=== PATIENT | male | born 1960 | race Caucasian/White ===

== ENCOUNTER 2017-09-25 08:50 | Inpatient (IN) | payer MEDICARE, MEDICAID ==
[~2017-09-25] VITALS: Ht 175.3 cm; Wt 135.0 kg
[~2017-09-25 08:50] MED LIST: ALLO100T PO; ALPR0.5T PO; ATEN100T OR; BUPR100T71 OR; BUPR1TAB78 PO; DONE5TAB11 PO; FENO1TAB42 PO; LISI2.5T47 PO; QUET50TA PO; RANI150C11 OR; TRAZ50TA2 OR; ZIPR40CA8 OR
[2017-09-25 09:59] LABS: Eosinophils # (auto) 0 uL; Hemoglobin 18.2 g/dL (13.5-17.5); Mean Corpuscular Volume 87.4 fL (80.0-100.0); Nucleated Red Blood Cells % 0.1 %
[2017-09-25 10:00] LABS: Basophils # (auto) 0.1 uL; Basophils % (auto) 0.4 % (0.0-2.0); Hematocrit 55.7 % (41.0-53.0); Lymphocytes % (auto) 10.4 % (10.0-50.0); Mean Corpuscular Hemoglobin 28.6 pg (28.0-32.0); Mean Corpuscular Hgb Conc. 32.8 g/dL (32.0-36.0); Monocytes # (auto) 1.7 uL; Monocytes % (auto) 8.8 % (0.0-12.0); Neutrophils # (auto) 15.5 uL; Neutrophils % (auto) 80.4 % (37.0-80.0); Platelet Count (auto) 426 10^3/uL (140-450); Red Blood Cells 6.37 10^6/uL (4.5-5.90); White Blood Cell 19.3 10^3/uL (4.4-10.8)
[2017-09-25] MEDS ORDERED: ACETAMINOPHEN 650 MG RECT SUPP PR ONE (10:00)
[2017-09-25 10:05] LABS: Lactic Acid w/Reflex 2.8 mmol/L (0.4-2.0)
[2017-09-25] MEDS ORDERED: SODIUM CHLORIDE 0.9% 1,000 ML IV ONE ×2 (10:27)
[2017-09-25] MEDS ORDERED: PIPERACILLIN-TAZOB 3.375GM 100 ML IV ONE ×2 (10:30→11:00)
[2017-09-25] MEDS ORDERED: VANCOMYCIN 1GM/250ML 250 ML IV ONE ×2 (10:30→11:00)
[2017-09-25 10:31] LABS: Alanine Aminotransferase 35 U/L (16-61); Alkaline Phosphatase 57 U/L (45-117); Anion Gap 12 (5-15); Aspartate Aminotransferase 40 U/L (15-37); BUN/Creatinine Ratio 21.7; Blood Urea Nitrogen 31 mg/dL (7-18); Calcium 9.2 mg/dL (8.5-10.1); Carbon Dioxide 20 mmol/L (21-32); Chloride 111 mmol/L (98-107); GFR African American 66 mL/min; GFR Non-African American 54 mL/min; Glucose 164 mg/dL (74-106); Potassium 4.2 mmol/L (3.5-5.1); Sodium 143 mmol/L (136-145)
[2017-09-25 10:32] LABS: Albumin 4.4 g/dL (3.4-5.0); Bilirubin, Total 0.6 mg/dL (0.2-1.0); Magnesium 2.9 mg/dL (1.6-2.6); Total Protein 8.9 g/dL (6.4-8.2)
[2017-09-25 10:44] LABS: Urine WBC None Seen /hpf (0 - 3)
[2017-09-25] MEDS ORDERED: VANCOMYCIN PER PHARMACY 0 MG IV SCH (11:00)
[2017-09-25] MEDS ORDERED: ACETAMINOPHEN 500 MG TAB PO PRN (11:00)
[2017-09-25] MEDS ORDERED: DEXTROSE (50%) 50ML SYRG IV PRN (11:00)
[2017-09-25] MEDS ORDERED: NITROGLYCERIN 0.4 MG SL TAB SL PRN (11:00)
[2017-09-25] MEDS ORDERED: TEMAZEPAM 15 MG CAP PO PRN (11:00)
[2017-09-25] MEDS ORDERED: LACTULOSE 20Gm/30ML SOLN PO PRN (11:00)
[2017-09-25] MEDS ORDERED: LORazepam 0.5 MG TAB PO PRN (11:00)
[2017-09-25] MEDS ORDERED: ALBUTEROL SULF 2.5 MG/0.5ML(0.5%) NEB SOLN NEB PRN (11:00)
[2017-09-25] MEDS ORDERED: MORPHINE SULFATE 8mg/ml INJ SDV IV PRN ×2 (11:00)
[2017-09-25] MEDS ORDERED: HYDROcodone-ACET 5/325MG TAB PO PRN (11:00)
[2017-09-25] MEDS ORDERED: PROMETHAZINE HCL 25 MG/ML 1ML IV PRN (11:00)
[2017-09-25] MEDS ORDERED: ENOXAPARIN SOD 40 MG/0.4 ML SYRINGE SC SCH (11:12)
[2017-09-25] MEDS ORDERED: ALLOPURINOL 100 MG TAB PO ONE (11:15)
[2017-09-25] MEDS ORDERED: PANTOPRAZOLE 40 MG TAB PO ONE (11:15)
[2017-09-25] MEDS ORDERED: DONEPEZIL HYDROCHLORIDE 5 MG TAB PO ONE (11:15)
[2017-09-25 11:17] LABS: Amphetamine Screen, Urine NEGATIVE (NEGATIVE); Barbiturate Scree,Urine NEGATIVE (NEGATIVE); Benzodiazephine Screen, Urine POSITIVE (NEGATIVE); Cannabinoid Screen, Urine NEGATIVE (NEGATIVE); Cocaine Screen, Urine NEGATIVE (NEGATIVE); Opiate Scree,Urine NEGATIVE (NEGATIVE); Phencyclidine Screen, Urine NEGATIVE (NEGATIVE)
[2017-09-25] MEDS ORDERED: LISINOPRIL 5 MG TAB PO ONE (11:30)
[2017-09-25 11:38] LABS: Urine Bacteria NONE SEEN /hpf (None Seen); Urine Blood TRACE /uL (Negative); Urine Mucus FEW (None Seen); Urine Specific Gravity 1.042 (1.001-1.035)
[2017-09-25] MEDS: SODIUM CHLORIDE 0.9% 1,000 ML IV SCH ×2 (11:45→19:08)
[2017-09-25] MEDS: ALBUTEROL SULF 2.5 MG/0.5ML(0.5%) NEB SOLN NEB SCH ×2 (12:00→19:13)
[2017-09-25 12:19] LABS: INR 1.06 (0.9-1.15); Partial Thromboplastin Time 28.7 sec (22.64-33.71); Prothrombin Time 11.6 sec (9.37-12.3)
[2017-09-25] MEDS: ACCU-CHEK COMFORT CURVE STRIP VI SCH ×2 (12:28→18:21)
[2017-09-25] MEDS ORDERED: LORazepam 2MG/ML-1ML VIAL IV PRN (13:00)
[2017-09-25] MEDS ORDERED: IODIXANOL 320MG/ML 100ML BTL IV ONE (13:38)
[2017-09-25] MEDS ORDERED: ENOXAPARIN SOD 60 MG/0.6 ML SYRINGE SC ONE (14:45)
[2017-09-25] MEDS: METOPROLOL TARTRATE 1MG/1ML-5ML VIAL IV SCH ×3 (15:16→22:47)
[2017-09-25 15:41] LABS: Folate (Folic Acid) 21.95 ng/mL (5.38-24)
[2017-09-25 15:54] VITALS: BP 145/75
[2017-09-25] MEDS: QUEtiapine FUMARATE 25 MG TAB PO SCH (18:00)
[2017-09-25] MEDS: PIPERACILLIN-TAZOB 3.375GM 100 ML IV SCH (18:25)
[2017-09-25] MEDS ORDERED: traZODone HCL 50 MG TAB PO SCH (22:00)
[2017-09-25] MEDS: ENOXAPARIN SOD 100 MG/1 ML SYRINGE SC SCH (22:55)
[2017-09-25] MEDS: ALLOPURINOL 100 MG TAB PO SCH (22:55)
[2017-09-25] MEDS: ZIPRASIDONE HYDROCHLORIDE 40 MG OR SCH (23:08)
[2017-09-25] MEDS: VANCOMYCIN 750 MG in SODIUM CHL 0.9% 250 ML IV SCH (23:08)
[2017-09-26] MEDS ORDERED: LORazepam 2MG/ML-1ML VIAL IM ONE (00:15)
[2017-09-26] MEDS ORDERED: HALOPERIDOL LACTATE 5 MG/ML INJ VIAL IM ONE (00:15)
[2017-09-26] MEDS ORDERED: diphenhdrAMINE HCL 50 MG/1 ML VL IM ONE (00:15)
[2017-09-26] MEDS: METOPROLOL TARTRATE 1MG/1ML-5ML VIAL IV SCH ×6 (02:00→22:00)
[2017-09-26] MEDS: PIPERACILLIN-TAZOB 3.375GM 100 ML IV SCH ×4 (02:05→18:41)
[2017-09-26] MEDS: ACCU-CHEK COMFORT CURVE STRIP VI SCH ×4 (02:34→18:41)
[2017-09-26] MEDS: SODIUM CHLORIDE 0.9% 1,000 ML IV SCH ×2 (03:21→11:35)
[2017-09-26 04:40] VITALS: BP 155/82
[2017-09-26] MEDS: ALBUTEROL SULF 2.5 MG/0.5ML(0.5%) NEB SOLN NEB SCH ×5 (06:05→23:49)
[2017-09-26 06:11] LABS: Basophils # (auto) 0.1 uL; Basophils % (auto) 0.6 % (0.0-2.0); Eosinophils # (auto) 0 uL; Hematocrit 44.4 % (41.0-53.0); Hemoglobin 14.5 g/dL (13.5-17.5); Lymphocytes # (auto) 2.3 uL; Lymphocytes % (auto) 15.9 % (10.0-50.0); Mean Corpuscular Hemoglobin 28.8 pg (28.0-32.0); Mean Corpuscular Hgb Conc. 32.6 g/dL (32.0-36.0); Mean Corpuscular Volume 88.1 fL (80.0-100.0); Monocytes # (auto) 1.5 uL; Monocytes % (auto) 10.1 % (0.0-12.0); Neutrophils # (auto) 10.6 uL; Neutrophils % (auto) 73.4 % (37.0-80.0); Nucleated Red Blood Cells % 0.1 %; Platelet Count (auto) 303 10^3/uL (140-450); Red Blood Cells 5.04 10^6/uL (4.5-5.90); Red Cell Distribution Width 13.8 % (11.8-14.3); White Blood Cell 14.5 10^3/uL (4.4-10.8)
[2017-09-26 06:36] LABS: Albumin 3.5 g/dL (3.4-5.0); BUN/Creatinine Ratio 22.3; Bilirubin, Total 0.5 mg/dL (0.2-1.0); Calcium 8.1 mg/dL (8.5-10.1); Potassium 3.8 mmol/L (3.5-5.1); Total Protein 7.1 g/dL (6.4-8.2)
[2017-09-26 07:30] VITALS: BP 119/73
[2017-09-26] MEDS: DONEPEZIL HYDROCHLORIDE 5 MG TAB PO SCH (09:26)
[2017-09-26] MEDS: PANTOPRAZOLE 40 MG TAB PO SCH (09:26)
[2017-09-26] MEDS: ENOXAPARIN SOD 100 MG/1 ML SYRINGE SC SCH ×2 (09:27→22:17)
[2017-09-26] MEDS: ALLOPURINOL 100 MG TAB PO SCH ×2 (09:27→22:17)
[2017-09-26] MEDS: LISINOPRIL 5 MG TAB PO SCH (09:27)
[2017-09-26] MEDS: BUPROPION HCL 300 MG PO SCH (10:00)
[2017-09-26] MEDS: ZIPRASIDONE HYDROCHLORIDE 40 MG OR SCH ×2 (10:00→22:00)
[2017-09-26] MEDS: Fenofibrate 160 MG PO SCH (10:00)
[2017-09-26] MEDS: VANCOMYCIN 750 MG in SODIUM CHL 0.9% 250 ML IV SCH (10:34)
[2017-09-26 11:47] VITALS: BP 127/79
[2017-09-26] MEDS: AZITHROMYCIN 500MG/ 250ML 250 ML IV SCH (12:34)
[2017-09-26 15:29] VITALS: BP 136/79
[2017-09-26] MEDS ORDERED: ASPI-498 OR (16:19)
[2017-09-26] MEDS ORDERED: OMEG100078 PO (16:20)
[2017-09-26] MEDS ORDERED: ASPI-498 PO (16:21)
[2017-09-26] MEDS ORDERED: SERT-160 PO (16:27)
[2017-09-26] MEDS ORDERED: CHOL1TAB42 PO (16:36)
[2017-09-26] MEDS ORDERED: METF-370 PO (16:39)
[2017-09-26] MEDS: QUEtiapine FUMARATE 25 MG TAB PO SCH (18:41)
[2017-09-26 20:00] VITALS: BP 101/52
[2017-09-26] MEDS: VANCOMYCIN 1,250 MG in SODIUM CHL 0.9% 250 ML IV SCH (22:30)
[2017-09-27] MEDS: ACCU-CHEK COMFORT CURVE STRIP VI SCH ×4 (00:20→18:35)
[2017-09-27] MEDS: PIPERACILLIN-TAZOB 3.375GM 100 ML IV SCH ×4 (00:56→18:34)
[2017-09-27] MEDS: METOPROLOL TARTRATE 1MG/1ML-5ML VIAL IV SCH ×6 (02:00→22:00)
[2017-09-27 05:00] VITALS: BP 105/68
[2017-09-27] MEDS: VANCOMYCIN 1,250 MG in SODIUM CHL 0.9% 250 ML IV SCH ×2 (05:23→14:10)
[2017-09-27 06:14] LABS: Basophils # (auto) 0.1 uL; Basophils % (auto) 1.1 % (0.0-2.0); Eosinophils # (auto) 0.2 uL; Eosinophils % (auto) 2.1 % (0.0-7.0); Hematocrit 40.6 % (41.0-53.0); Hemoglobin 13.4 g/dL (13.5-17.5); Lymphocytes # (auto) 2.3 uL; Lymphocytes % (auto) 25.5 % (10.0-50.0); Mean Corpuscular Hgb Conc. 33.1 g/dL (32.0-36.0); Mean Corpuscular Volume 87.7 fL (80.0-100.0); Monocytes # (auto) 0.8 uL; Monocytes % (auto) 8.4 % (0.0-12.0); Neutrophils # (auto) 5.7 uL; Neutrophils % (auto) 62.9 % (37.0-80.0); Nucleated Red Blood Cells % 0.1 %; Platelet Count (auto) 262 10^3/uL (140-450); Red Blood Cells 4.63 10^6/uL (4.5-5.90); Red Cell Distribution Width 13.9 % (11.8-14.3)
[2017-09-27 06:27] LABS: Albumin 3.1 g/dL (3.4-5.0); BUN/Creatinine Ratio 14.3; Bilirubin, Total 0.4 mg/dL (0.2-1.0); Calcium 8.1 mg/dL (8.5-10.1); Potassium 3.6 mmol/L (3.5-5.1); Total Protein 6.5 g/dL (6.4-8.2)
[2017-09-27] MEDS: ALBUTEROL SULF 2.5 MG/0.5ML(0.5%) NEB SOLN NEB SCH ×4 (06:41→22:36)
[2017-09-27 08:00] VITALS: BP 105/68
[2017-09-27 08:07] VITALS: BP 121/73
[2017-09-27] MEDS: AZITHROMYCIN 500MG/ 250ML 250 ML IV SCH (08:46)
[2017-09-27] MEDS: PANTOPRAZOLE 40 MG TAB PO SCH (08:46)
[2017-09-27] MEDS: ENOXAPARIN SOD 100 MG/1 ML SYRINGE SC SCH ×2 (08:46→22:21)
[2017-09-27] MEDS: ALLOPURINOL 100 MG TAB PO SCH ×2 (08:47→22:21)
[2017-09-27] MEDS: LISINOPRIL 5 MG TAB PO SCH (08:47)
[2017-09-27] MEDS: DONEPEZIL HYDROCHLORIDE 5 MG TAB PO SCH (08:47)
[2017-09-27] MEDS: ZIPRASIDONE HYDROCHLORIDE 40 MG OR SCH ×2 (10:00→22:00)
[2017-09-27] MEDS: Fenofibrate 160 MG PO SCH (10:00)
[2017-09-27] MEDS: BUPROPION HCL 300 MG PO SCH (10:00)
[2017-09-27] MEDS: SODIUM CHLORIDE 0.9% 1,000 ML IV SCH ×2 (12:30)
[2017-09-27 17:09] VITALS: BP 116/69
[2017-09-27] MEDS: QUEtiapine FUMARATE 25 MG TAB PO SCH (18:34)
[2017-09-27 22:00] VITALS: BP 100/62
[2017-09-28] VITALS (7 sets, daily range): BP systolic 112–143; BP diastolic 63–84
[2017-09-28] MEDS: ACCU-CHEK COMFORT CURVE STRIP VI SCH ×4 (00:13→17:18)
[2017-09-28] MEDS: METOPROLOL TARTRATE 1MG/1ML-5ML VIAL IV SCH ×6 (02:00→21:59)
[2017-09-28] MEDS: cefTRIAXone 1GM/10ml IVPUSH 10 ML IV SCH (02:25)
[2017-09-28] MEDS: ALBUTEROL SULF 2.5 MG/0.5ML(0.5%) NEB SOLN NEB SCH ×3 (05:58→18:49)
[2017-09-28 06:11] LABS: Basophils # (auto) 0.1 uL; Basophils % (auto) 1.3 % (0.0-2.0); Eosinophils # (auto) 0.2 uL; Eosinophils % (auto) 3.1 % (0.0-7.0); Hematocrit 39.7 % (41.0-53.0); Hemoglobin 13.2 g/dL (13.5-17.5); Lymphocytes # (auto) 1.8 uL; Lymphocytes % (auto) 23.7 % (10.0-50.0); Mean Corpuscular Hemoglobin 29.2 pg (28.0-32.0); Mean Corpuscular Hgb Conc. 33.3 g/dL (32.0-36.0); Mean Corpuscular Volume 87.7 fL (80.0-100.0); Monocytes # (auto) 0.7 uL; Monocytes % (auto) 8.8 % (0.0-12.0); Neutrophils # (auto) 4.8 uL; Neutrophils % (auto) 63.1 % (37.0-80.0); Platelet Count (auto) 251 10^3/uL (140-450); Red Blood Cells 4.52 10^6/uL (4.5-5.90); Red Cell Distribution Width 13.6 % (11.8-14.3); White Blood Cell 7.6 10^3/uL (4.4-10.8)
[2017-09-28] MEDS: SODIUM CHLORIDE 0.9% 1,000 ML IV SCH ×2 (06:17→13:30)
[2017-09-28 06:25] LABS: Albumin 2.9 g/dL (3.4-5.0); Calcium 8.1 mg/dL (8.5-10.1); Potassium 3.5 mmol/L (3.5-5.1)
[2017-09-28 06:27] LABS: BUN/Creatinine Ratio 13.8
[2017-09-28 06:30] LABS: Bilirubin, Total 0.4 mg/dL (0.2-1.0); Total Protein 6.3 g/dL (6.4-8.2)
[2017-09-28] MEDS: ALLOPURINOL 100 MG TAB PO SCH ×2 (09:21→21:56)
[2017-09-28] MEDS: LISINOPRIL 5 MG TAB PO SCH (09:21)
[2017-09-28] MEDS: DONEPEZIL HYDROCHLORIDE 5 MG TAB PO SCH (09:21)
[2017-09-28] MEDS: AZITHROMYCIN 250 MG TAB PO SCH (09:21)
[2017-09-28] MEDS: PANTOPRAZOLE 40 MG TAB PO SCH (09:22)
[2017-09-28] MEDS: ENOXAPARIN SOD 100 MG/1 ML SYRINGE SC SCH (09:22)
[2017-09-28] MEDS: BUPROPION HCL 300 MG PO SCH (10:00)
[2017-09-28] MEDS: Fenofibrate 160 MG PO SCH (10:00)
[2017-09-28] MEDS: ZIPRASIDONE HYDROCHLORIDE 40 MG OR SCH ×2 (10:00→22:00)
[2017-09-28] MEDS: QUEtiapine FUMARATE 25 MG TAB PO SCH (17:17)
[2017-09-28] MEDS: APIXABAN 5 MG TAB PO SCH (21:56)
[2017-09-29] MEDS: ALBUTEROL SULF 2.5 MG/0.5ML(0.5%) NEB SOLN NEB SCH ×3 (00:06→11:38)
[2017-09-29] MEDS: METOPROLOL TARTRATE 1MG/1ML-5ML VIAL IV SCH ×2 (02:00→06:00)
[2017-09-29] MEDS: cefTRIAXone 1GM/10ml IVPUSH 10 ML IV SCH (03:20)
[2017-09-29] MEDS: SODIUM CHLORIDE 0.9% 1,000 ML IV SCH (03:20)
[2017-09-29 06:04] VITALS: BP 119/78
[2017-09-29] MEDS: ACCU-CHEK COMFORT CURVE STRIP VI SCH ×2 (06:28)
[2017-09-29 07:21] LABS: Albumin 3.2 g/dL (3.4-5.0); BUN/Creatinine Ratio 17.1; Bilirubin, Total 0.3 mg/dL (0.2-1.0); Calcium 8.6 mg/dL (8.5-10.1); Potassium 3.8 mmol/L (3.5-5.1); Total Protein 6.7 g/dL (6.4-8.2)
[2017-09-29 07:26] LABS: Basophils # (auto) 0.1 uL; Basophils % (auto) 0.7 % (0.0-2.0); Eosinophils # (auto) 0.2 uL; Eosinophils % (auto) 2.7 % (0.0-7.0); Hematocrit 39.9 % (41.0-53.0); Hemoglobin 13.3 g/dL (13.5-17.5); Lymphocytes # (auto) 1.6 uL; Lymphocytes % (auto) 22.6 % (10.0-50.0); Mean Corpuscular Hemoglobin 29.1 pg (28.0-32.0); Mean Corpuscular Hgb Conc. 33.4 g/dL (32.0-36.0); Mean Corpuscular Volume 87.2 fL (80.0-100.0); Monocytes # (auto) 0.6 uL; Monocytes % (auto) 8.5 % (0.0-12.0); Neutrophils # (auto) 4.7 uL; Neutrophils % (auto) 65.5 % (37.0-80.0); Nucleated Red Blood Cells % 0.1 %; Platelet Count (auto) 261 10^3/uL (140-450); Red Blood Cells 4.58 10^6/uL (4.5-5.90); White Blood Cell 7.2 10^3/uL (4.4-10.8)
[2017-09-29 08:46] VITALS: BP 116/74
[2017-09-29] MEDS: AZITHROMYCIN 250 MG TAB PO SCH (09:37)
[2017-09-29] MEDS: LISINOPRIL 5 MG TAB PO SCH (09:38)
[2017-09-29] MEDS: DONEPEZIL HYDROCHLORIDE 5 MG TAB PO SCH (09:38)
[2017-09-29] MEDS: PANTOPRAZOLE 40 MG TAB PO SCH (09:38)
[2017-09-29] MEDS: APIXABAN 5 MG TAB PO SCH (09:38)
[2017-09-29] MEDS: ALLOPURINOL 100 MG TAB PO SCH (09:38)
[2017-09-29] MEDS ORDERED: BUPROPION HCL 150 MG PO SCH (10:00)
[2017-09-29 11:36] VITALS: BP 114/74
[2017-09-29 12:39] VITALS: BP 116/74
== END 2017-09-29 16:45 | disposition home or self-care (01) | DRG 871 ==
LOC: ER 08:50 → EDBD 08:50 → EDUNIT# 08:50 → OVERFLOW 08:51 → DOU IN ICU 09-26 03:28 → TELE-EAST 09-26 23:48
PROVIDERS: ADMIT Internal Medicine; ATTEND Family Medicine
DX: A41.9 Sepsis, unspecified organism (principal); G93.41 Metabolic encephalopathy; I26.99 Other pulmonary embolism without acute cor pulmonale; J18.9 Pneumonia, unspecified organism; F03.90 Unspecified dementia, unspecified severity, without behavioral disturbance, psychotic disturbance, mood disturbance, and anxiety; F41.9 Anxiety disorder, unspecified; F20.9 Schizophrenia, unspecified; F32.9 Major depressive disorder, single episode, unspecified; I10 Essential (primary) hypertension; Z80.7 Family history of other malignant neoplasms of lymphoid, hematopoietic and related tissues; Z82.49 Family history of ischemic heart disease and other diseases of the circulatory system; Z85.72 Personal history of non-Hodgkin lymphomas; Z90.49 Acquired absence of other specified parts of digestive tract
CPT/HCPCS: 36415; 51702; 70450; 71045; 71275; 80053; 80061; 80202; 80307; 80320; 81001; 82550; 82607; 82746; 82962; 83036; 83605; 83735; 84443; 84484; 85025; 85379; 85610; 85652; 85730; 87040; 87081; 87086; 93005; 94640; 94761; 96365; G0378; J2543; J7060; Q9967

== ENCOUNTER 2017-10-19 17:15 | Inpatient (IN) | payer MEDICARE, MEDICAID ==
[~2017-10-19] VITALS: Ht 182.9 cm; Wt 129.1 kg
[~2017-10-19 17:15] MED LIST changes: +ASPI-498 PO; +CHOL1TAB42 PO; +METF-370 PO; +OMEG100078 PO; +SERT-160 PO
[2017-10-19 19:19] LABS: Basophils # (auto) 0.1 uL; Eosinophils # (auto) 0 uL; Hemoglobin 17.5 g/dL (13.5-17.5)
[2017-10-19 19:21] LABS: Basophils % (auto) 0.3 % (0.0-2.0); Lymphocytes # (auto) 1.8 uL; Lymphocytes % (auto) 8.5 % (10.0-50.0); Mean Corpuscular Hemoglobin 29.2 pg (28.0-32.0); Mean Corpuscular Hgb Conc. 33.6 g/dL (32.0-36.0); Mean Corpuscular Volume 86.9 fL (80.0-100.0); Monocytes # (auto) 1.9 uL; Monocytes % (auto) 8.6 % (0.0-12.0); Neutrophils % (auto) 82.6 % (37.0-80.0); Nucleated Red Blood Cells % 0.1 %; Platelet Count (auto) 426 10^3/uL (140-450); Red Blood Cells 5.98 10^6/uL (4.5-5.90); Red Cell Distribution Width 13.9 % (11.8-14.3); White Blood Cell 21.8 10^3/uL (4.4-10.8)
[2017-10-19 19:38] LABS: Lactic Acid w/Reflex 2.2 mmol/L (0.4-2.0)
[2017-10-19 19:39] LABS: Albumin 4.6 g/dL (3.4-5.0); BUN/Creatinine Ratio 12.2; Bilirubin, Total 0.5 mg/dL (0.2-1.0); Potassium 4.5 mmol/L (3.5-5.1); Total Protein 9.1 g/dL (6.4-8.2)
[2017-10-19] MEDS ORDERED: SODIUM CHLORIDE 0.9% 1,000 ML IVB ONE (19:42)
[2017-10-19] MEDS ORDERED: cefTRIAXone 1GM/10ml IVPUSH 10 ML IV ONE (19:45)
[2017-10-19] MEDS ORDERED: SODIUM CHLORIDE 0.9% 1,000 ML IV ONE (19:45)
[2017-10-19 20:06] LABS: INR 1.01 (0.9-1.15); Prothrombin Time 10.8 sec (9.27-12.13)
[2017-10-19 20:18] LABS: Magnesium 2.7 mg/dL (1.6-2.6)
[2017-10-19 21:07] LABS: Urine Bacteria NONE SEEN /hpf (None Seen); Urine Blood Negative /uL (Negative); Urine Hyaline Cast FEW /lpf (0 - 2); Urine Mucus FEW (None Seen); Urine Specific Gravity 1.028 (1.001-1.035); Urine WBC 4 /hpf (0 - 3)
[2017-10-19] MEDS ORDERED: HYDROcodone-ACET 5/325MG TAB PO PRN (22:45)
[2017-10-19] MEDS ORDERED: ONDANSETRON HCL 4 MG/2 ML VIAL IV PRN (22:45)
[2017-10-19] MEDS ORDERED: VANCOMYCIN PER PHARMACY 0 MG IV SCH (22:45)
[2017-10-20] MEDS ORDERED: VANCOMYCIN 1GM/250ML 250 ML IV ONE
[2017-10-20] MEDS: PIPERACILLIN-TAZOB 3.375GM 100 ML IV SCH ×5 (01:25→23:55)
[2017-10-20 01:32] LABS: Alcohol, Urine < 3.0 mg/dL (0-5); Amphetamine Screen, Urine NEGATIVE (NEGATIVE); Barbiturate Scree,Urine NEGATIVE (NEGATIVE); Benzodiazephine Screen, Urine POSITIVE (NEGATIVE); Cannabinoid Screen, Urine NEGATIVE (NEGATIVE); Cocaine Screen, Urine NEGATIVE (NEGATIVE); Opiate Scree,Urine NEGATIVE (NEGATIVE); Phencyclidine Screen, Urine NEGATIVE (NEGATIVE)
[2017-10-20 05:20] LABS: Basophils # (auto) 0.1 uL; Basophils % (auto) 0.5 % (0.0-2.0); Eosinophils # (auto) 0 uL; Eosinophils % (auto) 0.2 % (0.0-7.0); Hematocrit 47.2 % (41.0-53.0); Hemoglobin 15.8 g/dL (13.5-17.5); Lymphocytes # (auto) 2.3 uL; Lymphocytes % (auto) 15.9 % (10.0-50.0); Mean Corpuscular Hemoglobin 29.1 pg (28.0-32.0); Mean Corpuscular Hgb Conc. 33.4 g/dL (32.0-36.0); Mean Corpuscular Volume 87.1 fL (80.0-100.0); Monocytes # (auto) 1.7 uL; Monocytes % (auto) 12.2 % (0.0-12.0); Neutrophils # (auto) 10.2 uL; Neutrophils % (auto) 71.2 % (37.0-80.0); Nucleated Red Blood Cells % 0.1 %; Platelet Count (auto) 357 10^3/uL (140-450); Red Blood Cells 5.42 10^6/uL (4.5-5.90); White Blood Cell 14.3 10^3/uL (4.4-10.8)
[2017-10-20 05:39] LABS: Calcium 9.1 mg/dL (8.5-10.1); Potassium 4.3 mmol/L (3.5-5.1)
[2017-10-20] MEDS: buPROPion HCL 100 MG TAB PO SCH ×2 (06:01→18:15)
[2017-10-20] MEDS ORDERED: SODIUM CHLORIDE 0.9% 1,000 ML IV SCH (08:45)
[2017-10-20] MEDS: VANCOMYCIN 1,250 MG in D5W 5% 250 ML IV SCH ×2 (09:30→21:30)
[2017-10-20] MEDS: APIXABAN 5 MG TAB PO SCH ×2 (09:56→21:31)
[2017-10-20] MEDS: LISINOPRIL 5 MG TAB PO SCH (09:57)
[2017-10-20] MEDS ORDERED: metFORMIN HYDROCHLORIDE 500 MG TAB PO SCH (10:00)
[2017-10-20] MEDS ORDERED: VANCOMYCIN 1GM/250ML 250 ML IV SCH (10:00)
[2017-10-20] MEDS: LORazepam 2MG/ML-1ML VIAL IV PRN ×2 (10:05→21:31)
[2017-10-20] MEDS: SODIUM CHLORIDE 0.9% 1,000 ML IV SCH (16:15)
[2017-10-20 17:00] VITALS: BP 136/91
[2017-10-20] MEDS ORDERED: APIX5TAB PO (18:27)
[2017-10-20 20:00] VITALS: BP 81/49
[2017-10-20] MEDS: ACETAMINOPHEN 500 MG TAB PO PRN (20:45)
[2017-10-20] MEDS ORDERED: SODIUM CHLORIDE 0.9% 1,000 ML IV ONE (21:15)
[2017-10-20] MEDS ORDERED: LORazepam 2MG/ML-1ML VIAL IV PRN (21:15)
[2017-10-20] MEDS: DONEPEZIL HYDROCHLORIDE 5 MG TAB PO SCH (21:31)
[2017-10-20 22:00] VITALS: BP 81/49
[2017-10-20] MEDS ORDERED: QUEtiapine FUMARATE 100 MG TAB PO SCH (22:00)
[2017-10-20 22:46] VITALS: BP 92/57
[2017-10-21] MEDS: SODIUM CHLORIDE 0.9% 1,000 ML IV SCH ×3 (01:04→16:15)
[2017-10-21 05:00] VITALS: BP 134/80
[2017-10-21] MEDS: PIPERACILLIN-TAZOB 3.375GM 100 ML IV SCH ×4 (05:40→23:29)
[2017-10-21 06:24] LABS: Basophils # (auto) 0.1 uL; Eosinophils # (auto) 0.1 uL; Eosinophils % (auto) 0.6 % (0.0-7.0); Hematocrit 45.3 % (41.0-53.0); Hemoglobin 14.9 g/dL (13.5-17.5); Lymphocytes # (auto) 2.4 uL; Lymphocytes % (auto) 17.8 % (10.0-50.0); Mean Corpuscular Hemoglobin 28.8 pg (28.0-32.0); Mean Corpuscular Hgb Conc. 32.9 g/dL (32.0-36.0); Mean Corpuscular Volume 87.6 fL (80.0-100.0); Monocytes # (auto) 1.4 uL; Monocytes % (auto) 10.3 % (0.0-12.0); Neutrophils # (auto) 9.4 uL; Neutrophils % (auto) 70.3 % (37.0-80.0); Nucleated Red Blood Cells % 0.1 %; Platelet Count (auto) 337 10^3/uL (140-450); Red Blood Cells 5.17 10^6/uL (4.5-5.90); Red Cell Distribution Width 14.5 % (11.8-14.3); White Blood Cell 13.4 10^3/uL (4.4-10.8)
[2017-10-21 06:49] LABS: Albumin 3.8 g/dL (3.4-5.0); BUN/Creatinine Ratio 22.4; Calcium 8.5 mg/dL (8.5-10.1)
[2017-10-21 06:52] LABS: Bilirubin, Total 0.7 mg/dL (0.2-1.0); Total Protein 7.6 g/dL (6.4-8.2)
[2017-10-21] MEDS: buPROPion HCL 100 MG TAB PO SCH ×2 (07:04→18:50)
[2017-10-21 08:00] VITALS: BP 154/89
[2017-10-21 09:26] VITALS: BP 154/89
[2017-10-21] MEDS: LISINOPRIL 5 MG TAB PO SCH (10:00)
[2017-10-21] MEDS: APIXABAN 5 MG TAB PO SCH ×3 (10:00→21:38)
[2017-10-21] MEDS: VANCOMYCIN 1,250 MG in D5W 5% 250 ML IV SCH ×2 (10:07→21:30)
[2017-10-21 13:00] VITALS: BP 129/71
[2017-10-21 17:25] VITALS: BP 121/88
[2017-10-21] MEDS: metFORMIN HYDROCHLORIDE 500 MG TAB PO SCH (18:15)
[2017-10-21 19:50] VITALS: BP 136/85
[2017-10-21] MEDS: DONEPEZIL HYDROCHLORIDE 5 MG TAB PO SCH ×2 (21:30→21:38)
[2017-10-22] VITALS (7 sets, daily range): BP systolic 130–163; BP diastolic 38–104
[2017-10-22] MEDS: SODIUM CHLORIDE 0.9% 1,000 ML IV SCH ×3 (00:15→16:14)
[2017-10-22] MEDS: buPROPion HCL 100 MG TAB PO SCH (05:25)
[2017-10-22] MEDS: PIPERACILLIN-TAZOB 3.375GM 100 ML IV SCH ×3 (05:28→18:00)
[2017-10-22 06:08] LABS: Basophils # (auto) 0.1 uL; Basophils % (auto) 1.1 % (0.0-2.0); Eosinophils # (auto) 0.2 uL; Eosinophils % (auto) 1.7 % (0.0-7.0); Hematocrit 47.7 % (41.0-53.0); Hemoglobin 15.6 g/dL (13.5-17.5); Lymphocytes # (auto) 2.4 uL; Lymphocytes % (auto) 19.7 % (10.0-50.0); Mean Corpuscular Hgb Conc. 32.8 g/dL (32.0-36.0); Mean Corpuscular Volume 88.4 fL (80.0-100.0); Monocytes # (auto) 1.1 uL; Monocytes % (auto) 9.3 % (0.0-12.0); Neutrophils # (auto) 8.3 uL; Neutrophils % (auto) 68.2 % (37.0-80.0); Nucleated Red Blood Cells % 0.1 %; Platelet Count (auto) 343 10^3/uL (140-450); Red Blood Cells 5.39 10^6/uL (4.5-5.90); Red Cell Distribution Width 14.2 % (11.8-14.3); White Blood Cell 12.2 10^3/uL (4.4-10.8)
[2017-10-22 06:18] LABS: Albumin 4.1 g/dL (3.4-5.0); BUN/Creatinine Ratio 15.6; Bilirubin, Total 0.6 mg/dL (0.2-1.0); Calcium 9.2 mg/dL (8.5-10.1); Potassium 4.4 mmol/L (3.5-5.1); Total Protein 8.2 g/dL (6.4-8.2)
[2017-10-22] MEDS ORDERED: VANCOMYCIN 1GM/250ML 250 ML IV SCH (08:00)
[2017-10-22] MEDS: metFORMIN HYDROCHLORIDE 500 MG TAB PO SCH ×2 (08:40→18:00)
[2017-10-22] MEDS: APIXABAN 5 MG TAB PO SCH ×2 (10:31→22:30)
[2017-10-22] MEDS: LISINOPRIL 5 MG TAB PO SCH (10:32)
[2017-10-22] MEDS ORDERED: DIGOXIN 0.125 MG TAB PO ONE (15:30)
[2017-10-22] MEDS: VANCOMYCIN 1,250 MG in D5W 5% 250 ML IV SCH (17:31)
[2017-10-22] MEDS: DONEPEZIL HYDROCHLORIDE 5 MG TAB PO SCH (22:30)
[2017-10-22] MEDS ORDERED: LORazepam 0.5 MG TAB PO ONE (22:30)
[2017-10-22] MEDS: ACETAMINOPHEN 500 MG TAB PO PRN (22:30)
[2017-10-22] MEDS ORDERED: LORazepam 0.5 MG TAB ONE (22:38)
[2017-10-23] MEDS: PIPERACILLIN-TAZOB 3.375GM 100 ML IV SCH ×4 (00:10→17:30)
[2017-10-23] MEDS: SODIUM CHLORIDE 0.9% 1,000 ML IV SCH ×3 (00:15→15:45)
[2017-10-23 00:20] VITALS: BP 108/66
[2017-10-23] MEDS: ACETAMINOPHEN 500 MG TAB PO PRN (02:07)
[2017-10-23] MEDS: VANCOMYCIN 1,250 MG in D5W 5% 250 ML IV SCH (04:00)
[2017-10-23 05:19] LABS: Basophils # (auto) 0.1 uL; Basophils % (auto) 0.7 % (0.0-2.0); Eosinophils # (auto) 0.4 uL; Eosinophils % (auto) 3.2 % (0.0-7.0); Hematocrit 46.6 % (41.0-53.0); Hemoglobin 15.5 g/dL (13.5-17.5); Lymphocytes # (auto) 2.5 uL; Lymphocytes % (auto) 22.6 % (10.0-50.0); Mean Corpuscular Hemoglobin 29.3 pg (28.0-32.0); Mean Corpuscular Hgb Conc. 33.3 g/dL (32.0-36.0); Monocytes # (auto) 0.9 uL; Monocytes % (auto) 8.4 % (0.0-12.0); Neutrophils # (auto) 7.2 uL; Neutrophils % (auto) 65.1 % (37.0-80.0); Nucleated Red Blood Cells % 0.2 %; Platelet Count (auto) 287 10^3/uL (140-450); Red Blood Cells 5.29 10^6/uL (4.5-5.90); White Blood Cell 11.1 10^3/uL (4.4-10.8)
[2017-10-23 05:31] LABS: Albumin 3.8 g/dL (3.4-5.0); BUN/Creatinine Ratio 22.3; Calcium 9.1 mg/dL (8.5-10.1); Potassium 3.6 mmol/L (3.5-5.1)
[2017-10-23 05:33] LABS: Bilirubin, Total 0.9 mg/dL (0.2-1.0)
[2017-10-23 08:00] VITALS: BP 123/74
[2017-10-23] MEDS: DIGOXIN 0.125 MG TAB PO SCH (08:58)
[2017-10-23] MEDS: APIXABAN 5 MG TAB PO SCH ×2 (09:46→23:02)
[2017-10-23] MEDS: metFORMIN HYDROCHLORIDE 500 MG TAB PO SCH ×2 (09:47→18:00)
[2017-10-23] MEDS: LISINOPRIL 5 MG TAB PO SCH (09:47)
[2017-10-23 11:55] VITALS: BP 111/71
[2017-10-23] MEDS ORDERED: DEXTROSE (50%) 50ML SYRG IV PRN (15:15)
[2017-10-23 16:00] VITALS: BP 122/75
[2017-10-23] MEDS: InsuLIN REG 1unit/0.01ml Soln (100units/ml) SC SCH ×2 (17:00→22:00)
[2017-10-23] MEDS: ACCU-CHEK COMFORT CURVE STRIP VI SCH ×2 (17:29→22:00)
[2017-10-23 20:00] VITALS: BP 142/82
[2017-10-23] MEDS: DONEPEZIL HYDROCHLORIDE 5 MG TAB PO SCH (22:47)
[2017-10-24] VITALS: BP 133/79
[2017-10-24] MEDS: SODIUM CHLORIDE 0.9% 1,000 ML IV SCH ×3 (01:15→21:27)
[2017-10-24] MEDS: PIPERACILLIN-TAZOB 3.375GM 100 ML IV SCH ×2 (01:22→05:33)
[2017-10-24 04:52] VITALS: BP 122/71
[2017-10-24 05:15] LABS: Basophils # (auto) 0.1 uL; Basophils % (auto) 0.6 % (0.0-2.0); Eosinophils # (auto) 0.4 uL; Hematocrit 43.7 % (41.0-53.0); Hemoglobin 14.6 g/dL (13.5-17.5); Lymphocytes # (auto) 1.8 uL; Lymphocytes % (auto) 20.1 % (10.0-50.0); Mean Corpuscular Hemoglobin 29.2 pg (28.0-32.0); Mean Corpuscular Hgb Conc. 33.3 g/dL (32.0-36.0); Mean Corpuscular Volume 87.8 fL (80.0-100.0); Monocytes # (auto) 0.8 uL; Monocytes % (auto) 8.3 % (0.0-12.0); Neutrophils # (auto) 6.1 uL; Nucleated Red Blood Cells % 0.1 %; Platelet Count (auto) 262 10^3/uL (140-450); Red Blood Cells 4.98 10^6/uL (4.5-5.90); Red Cell Distribution Width 13.8 % (11.8-14.3); White Blood Cell 9.1 10^3/uL (4.4-10.8)
[2017-10-24 05:31] LABS: BUN/Creatinine Ratio 18.5; Calcium 8.5 mg/dL (8.5-10.1); Magnesium 2.4 mg/dL (1.6-2.6)
[2017-10-24] MEDS: InsuLIN REG 1unit/0.01ml Soln (100units/ml) SC SCH ×4 (05:33→21:27)
[2017-10-24] MEDS: ACCU-CHEK COMFORT CURVE STRIP VI SCH ×4 (05:33→21:27)
[2017-10-24] MEDS: metFORMIN HYDROCHLORIDE 500 MG TAB PO SCH ×2 (08:04→18:32)
[2017-10-24 08:30] VITALS: BP 119/74
[2017-10-24] MEDS: DIGOXIN 0.125 MG TAB PO SCH (10:31)
[2017-10-24] MEDS: PANTOPRAZOLE 40 MG TAB PO SCH (10:31)
[2017-10-24] MEDS: APIXABAN 5 MG TAB PO SCH (10:32)
[2017-10-24] MEDS: LISINOPRIL 5 MG TAB PO SCH (10:32)
[2017-10-24 12:00] VITALS: BP 119/87
[2017-10-24 16:54] VITALS: BP 111/58
[2017-10-24] MEDS ORDERED: VANCOMYCIN PER PHARMACY 0 MG IV SCH (20:00)
[2017-10-24] MEDS ORDERED: VANCOMYCIN 1GM/250ML 250 ML IV ONE (20:00)
[2017-10-24] MEDS: DONEPEZIL HYDROCHLORIDE 5 MG TAB PO SCH (21:26)
[2017-10-24 22:00] VITALS: BP 94/59
[2017-10-24] MEDS ORDERED: QUEtiapine FUMARATE 25 MG TAB PO SCH (22:00)
[2017-10-25 05:04] VITALS: BP 97/72
[2017-10-25] MEDS: SODIUM CHLORIDE 0.9% 1,000 ML IV SCH ×2 (06:22→11:45)
[2017-10-25] MEDS: ACCU-CHEK COMFORT CURVE STRIP VI SCH ×4 (06:22→22:00)
[2017-10-25] MEDS: InsuLIN REG 1unit/0.01ml Soln (100units/ml) SC SCH ×4 (06:22→22:00)
[2017-10-25 06:23] LABS: Basophils # (auto) 0.1 uL; Eosinophils # (auto) 0.3 uL; Eosinophils % (auto) 4.3 % (0.0-7.0); Hematocrit 39.9 % (41.0-53.0); Hemoglobin 13.3 g/dL (13.5-17.5); Lymphocytes # (auto) 2.2 uL; Lymphocytes % (auto) 28.5 % (10.0-50.0); Mean Corpuscular Hemoglobin 29.2 pg (28.0-32.0); Mean Corpuscular Hgb Conc. 33.4 g/dL (32.0-36.0); Mean Corpuscular Volume 87.3 fL (80.0-100.0); Monocytes # (auto) 0.8 uL; Monocytes % (auto) 10.4 % (0.0-12.0); Neutrophils # (auto) 4.3 uL; Neutrophils % (auto) 55.8 % (37.0-80.0); Nucleated Red Blood Cells % 0.2 %; Platelet Count (auto) 247 10^3/uL (140-450); Red Blood Cells 4.57 10^6/uL (4.5-5.90); Red Cell Distribution Width 13.3 % (11.8-14.3); White Blood Cell 7.6 10^3/uL (4.4-10.8)
[2017-10-25 06:31] LABS: BUN/Creatinine Ratio 15.6; Calcium 8.3 mg/dL (8.5-10.1); Potassium 3.6 mmol/L (3.5-5.1)
[2017-10-25] MEDS: metFORMIN HYDROCHLORIDE 500 MG TAB PO SCH ×2 (08:10→16:51)
[2017-10-25 08:14] VITALS: BP 128/86
[2017-10-25] MEDS: APIXABAN 5 MG TAB PO SCH ×2 (08:54→22:29)
[2017-10-25] MEDS: PANTOPRAZOLE 40 MG TAB PO SCH (08:55)
[2017-10-25] MEDS: LISINOPRIL 5 MG TAB PO SCH (08:55)
[2017-10-25] MEDS: DIGOXIN 0.125 MG TAB PO SCH (08:55)
[2017-10-25 12:35] VITALS: BP 125/57
[2017-10-25 16:24] VITALS: BP 141/85
[2017-10-25] MEDS: buPROPion HCL 75 MG TAB PO SCH (18:54)
[2017-10-25 20:00] VITALS: BP 142/72
[2017-10-25 22:00] VITALS: BP 142/72
[2017-10-25] MEDS: DONEPEZIL HYDROCHLORIDE 5 MG TAB PO SCH (22:30)
[2017-10-25] MEDS: QUEtiapine FUMARATE 25 MG TAB PO SCH (22:30)
[2017-10-26] MEDS: SODIUM CHLORIDE 0.9% 1,000 ML IV SCH ×2 (01:05→15:41)
[2017-10-26 05:00] VITALS: BP 105/68
[2017-10-26] MEDS: buPROPion HCL 75 MG TAB PO SCH ×2 (05:57→18:08)
[2017-10-26] MEDS: ACCU-CHEK COMFORT CURVE STRIP VI SCH ×4 (06:00→22:00)
[2017-10-26] MEDS: InsuLIN REG 1unit/0.01ml Soln (100units/ml) SC SCH ×4 (06:01→22:00)
[2017-10-26] MEDS: metFORMIN HYDROCHLORIDE 500 MG TAB PO SCH ×2 (08:03→18:08)
[2017-10-26 08:58] VITALS: BP 130/81
[2017-10-26] MEDS: PANTOPRAZOLE 40 MG TAB PO SCH (10:10)
[2017-10-26] MEDS: APIXABAN 5 MG TAB PO SCH ×2 (10:10→22:00)
[2017-10-26] MEDS: DIGOXIN 0.125 MG TAB PO SCH (10:10)
[2017-10-26] MEDS: LISINOPRIL 5 MG TAB PO SCH (10:11)
[2017-10-26 13:24] VITALS: BP 118/74
[2017-10-26 16:56] VITALS: BP 130/78
[2017-10-26 22:00] VITALS: BP 115/68
[2017-10-26] MEDS: DONEPEZIL HYDROCHLORIDE 5 MG TAB PO SCH (22:00)
[2017-10-26] MEDS: QUEtiapine FUMARATE 25 MG TAB PO SCH (22:00)
[2017-10-27] MEDS: SODIUM CHLORIDE 0.9% 1,000 ML IV SCH (03:45)
[2017-10-27 05:00] VITALS: BP 125/73
[2017-10-27] MEDS: ACCU-CHEK COMFORT CURVE STRIP VI SCH ×4 (06:27→22:00)
[2017-10-27] MEDS: buPROPion HCL 75 MG TAB PO SCH ×2 (06:28→18:02)
[2017-10-27] MEDS: InsuLIN REG 1unit/0.01ml Soln (100units/ml) SC SCH ×4 (07:00→22:00)
[2017-10-27 08:55] VITALS: BP 102/83
[2017-10-27] MEDS: PANTOPRAZOLE 40 MG TAB PO SCH (10:25)
[2017-10-27] MEDS: metFORMIN HYDROCHLORIDE 500 MG TAB PO SCH ×2 (10:25→18:02)
[2017-10-27] MEDS: DIGOXIN 0.125 MG TAB PO SCH (10:25)
[2017-10-27] MEDS: LISINOPRIL 5 MG TAB PO SCH (10:26)
[2017-10-27] MEDS: APIXABAN 5 MG TAB PO SCH ×2 (10:34→20:44)
[2017-10-27 13:11] VITALS: BP 132/73
[2017-10-27] MEDS ORDERED: HYDROcodone-ACET 5/325MG TAB PO PRN (13:15)
[2017-10-27 17:05] VITALS: BP 128/60
[2017-10-27] MEDS: DONEPEZIL HYDROCHLORIDE 5 MG TAB PO SCH (20:44)
[2017-10-27] MEDS: QUEtiapine FUMARATE 25 MG TAB PO SCH (20:44)
[2017-10-27 22:00] VITALS: BP 99/52
[2017-10-28 05:43] VITALS: BP 140/80
[2017-10-28] MEDS: buPROPion HCL 75 MG TAB PO SCH (06:24)
[2017-10-28] MEDS: ACCU-CHEK COMFORT CURVE STRIP VI SCH ×3 (06:30→17:00)
[2017-10-28] MEDS: InsuLIN REG 1unit/0.01ml Soln (100units/ml) SC SCH ×3 (06:30→17:00)
[2017-10-28] MEDS: metFORMIN HYDROCHLORIDE 500 MG TAB PO SCH (08:35)
[2017-10-28 09:00] VITALS: BP 128/74
[2017-10-28] MEDS: PANTOPRAZOLE 40 MG TAB PO SCH (09:40)
[2017-10-28] MEDS: DIGOXIN 0.125 MG TAB PO SCH (09:40)
[2017-10-28] MEDS: LISINOPRIL 5 MG TAB PO SCH (09:41)
[2017-10-28] MEDS: APIXABAN 5 MG TAB PO SCH (09:50)
[2017-10-28] MEDS ORDERED: LORA-655 PO (11:25)
[2017-10-28 13:00] VITALS: BP 129/73
[2017-10-28 16:18] VITALS: BP 129/73
== END 2017-10-28 17:30 | disposition home health service (06) | DRG 871 ==
LOC: EDBD 17:15 → EDUNIT# 17:15 → ER 17:24 → TELE 17:25 → ER 17:58 → TELE-CENTR 10-20 15:54 → DOU IN ICU 10-21 17:52 → TELE-CENTR 10-24 14:27
PROVIDERS: ADMIT Nurse Practitioner Family; ATTEND Internal Medicine
DX: A41.9 Sepsis, unspecified organism (principal); N17.0 Acute kidney failure with tubular necrosis; G92 Toxic encephalopathy; E11.21 Type 2 diabetes mellitus with diabetic nephropathy; F20.9 Schizophrenia, unspecified; I48.91 Unspecified atrial fibrillation; B99.9 Unspecified infectious disease; F13.239 Sedative, hypnotic or anxiolytic dependence with withdrawal, unspecified; I69.354 Hemiplegia and hemiparesis following cerebral infarction affecting left non-dominant side; T42.4X1A Poisoning by benzodiazepines, accidental (unintentional), initial encounter; F03.90 Unspecified dementia, unspecified severity, without behavioral disturbance, psychotic disturbance, mood disturbance, and anxiety; N18.9 Chronic kidney disease, unspecified; M10.9 Gout, unspecified; E11.22 Type 2 diabetes mellitus with diabetic chronic kidney disease; F41.9 Anxiety disorder, unspecified; I12.9 Hypertensive chronic kidney disease with stage 1 through stage 4 chronic kidney disease, or unspecified chronic kidney disease; K21.9 Gastro-esophageal reflux disease without esophagitis; Y92.89 Other specified places as the place of occurrence of the external cause; Z79.84 Long term (current) use of oral hypoglycemic drugs; Z79.899 Other long term (current) drug therapy; Z80.7 Family history of other malignant neoplasms of lymphoid, hematopoietic and related tissues; Z82.49 Family history of ischemic heart disease and other diseases of the circulatory system; Z86.711 Personal history of pulmonary embolism; Z90.49 Acquired absence of other specified parts of digestive tract; Z79.82 Long term (current) use of aspirin
CPT/HCPCS: 36415; 70450; 71045; 80048; 80053; 80162; 80202; 80307; 81001; 82550; 82962; 83036; 83605; 83735; 84484; 85025; 85610; 85652; 85730; 87040; 87077; 87086; 87186; 93005; 93306; 94761; 95819; 96361; 96365; 96375; 97110; 97116; 97530; J2543; J7060